=== PATIENT | female | born 1935 | race Caucasian/White ===

== ENCOUNTER 2017-02-22 10:26 | Emergency (ER) | payer MEDICARE, OTHER ==
--- NOTE | 2017-02-22 15:08 | ER ---
ADMIT: 02/22/2017 RM/LOC: ER [facility] MR#: [id number] [facility] [id number] [place], [place] [id number] VANESSACasey ROBERT Pack [address] [place] [address] Emergency Room Report SEX: F AGE: 82 : 1935 DATE: 02/22/2017 ADDENDUM: An 82-year-old white female coming in with right knee giving out. She has a little bit of discomfort, but main thing it gave out. She had not fallen or hurt herself. X-ray showed degenerative changes. I will put a postop knee splint on her. She is able to ambulate with walker without any problems. She also has a aujlaytg-an-yik with her. We are going to discharge her out. Ice, Tylenol, Motrin and then follow up with Ortho. CONDITION ON DISCHARGE: Fair. Bentley Vizcaino MD/ kaela JOB #: [id number] CC: Bentley Vizcaino MD, Attending Physician Marcelo Adams MD, Family Physician
== END 2017-02-22 11:20 | disposition home or self-care (01) ==
LOC: ER 10:26
DX: M17.11 Unilateral primary osteoarthritis, right knee (principal); I10 Essential (primary) hypertension; E11.9 Type 2 diabetes mellitus without complications; I25.10 Atherosclerotic heart disease of native coronary artery without angina pectoris; I25.2 Old myocardial infarction; F32.9 Major depressive disorder, single episode, unspecified; E78.5 Hyperlipidemia, unspecified; Z95.1 Presence of aortocoronary bypass graft; Z90.49 Acquired absence of other specified parts of digestive tract; Z79.82 Long term (current) use of aspirin; Z79.899 Other long term (current) drug therapy; Z88.2 Allergy status to sulfonamides; Z88.1 Allergy status to other antibiotic agents; Z88.8 Allergy status to other drugs, medicaments and biological substances; X50.9XXA Other and unspecified overexertion or strenuous movements or postures, initial encounter